=== PATIENT | female | born 1975 | race Caucasian/White ===

== ENCOUNTER → 2018-03-05 | Outpatient (CLI) | payer OTHER | END | disposition home or self-care (01) | LOC: MAMMO 10:57 | DX: Z12.31 Encounter for screening mammogram for malignant neoplasm of breast (principal) ==

== ENCOUNTER 2019-04-03 19:24 | Emergency (ER) | payer OTHER ==
[~2019-04-03] VITALS: Ht 167.6 cm; Wt 79.4 kg
[~2019-04-03 19:24] MED LIST: CYCLOBENZAPRINE10 MG PO; NAPROSYN500 MG PO; PREDNISONE20 M1 PO
[2019-04-03 19:26] VITALS: BP 131/86
[2019-04-03 20:26] LABS: BASO # 0.1 10*3/uL (0.0-0.1); BASO % 0.6 % (0.0-1.0); BILIRUBIN 1+ (NEGATIVE); BLOOD 3+ (NEGATIVE); CLARITY SL CLOUDY (CLEAR); COLOR YELLOW (YELLOW); EOS # 0.3 10*3/uL (0.0-0.4); EOS % 2.5 % (1.0-4.0); GLUCOSE NEGATIVE (NEGATIVE); HEMOGLOBIN 15.5 g/dl (12.0-16.0); KETONE NEGATIVE (NEGATIVE); LEUKO ESTERASE NEGATIVE (NEGATIVE); LYMPH # 2.4 10*3/uL (1.3-4.4); LYMPH % 20.6 % (27.0-41.0); MEAN CELL VOLUME 93.3 fl (81.0-99.0); MEAN CORPUSCULAR HGB 31.4 pg (27.0-31.0); MEAN CORPUSCULAR HGB CONC 33.7 g/dl (33.0-37.0); MEAN PLATELET VOLUME 9.5 fl (9.6-12.3); MONO # 0.9 10*3/uL (0.1-1.0); MONO % 7.6 % (3.0-9.0); NEUT # 8.1 10*3/uL (2.3-7.9); NEUT % 68.4 % (47.0-73.0); NITRITE NEGATIVE (NEGATIVE); PH 5.5 (5.0-9.0); PLATELET COUNT AUTOMATED 377 10*3/uL (130-400); RED BLOOD COUNT 4.93 10*6/uL (4.10-5.10); RED CELL DISTRI WIDTH 12.9 % (0-14.5); SPECIFIC GRAVITY >= 1.030 (1.005-1.030); UROBILINOGEN 0.2 E.U./dl (0.2-1.0); WHITE BLOOD COUNT 11.8 10*3/uL (4.8-10.8)
[2019-04-03 20:38] LABS: BACTERIA 1+
[2019-04-03 20:47] LABS: ALBUMIN 4.2 gm/dl (3.1-4.5); ALKALINE PHOSPHATASE 52 U/L (45-117); BUN 12 mg/dl (7-24); CHLORIDE 108 mmol/L (98-107); CREATININE 0.77 mg/dL (0.55-1.02); LIPASE 79 U/L (73-393); POTASSIUM 3.2 mmol/L (3.5-5.1); SGOT/AST 24 IU/L (3-35); SGPT/ALT 32 U/L (12-78); SODIUM 139 mmol/L (136-145); TOTAL PROTEIN 7.7 gm/dL (6.4-8.2)
[2019-04-03] MEDS ORDERED: ANTI-DIARRHEAL2 MG PO (21:10)
== END 2019-04-03 21:20 | disposition home or self-care (01) ==
LOC: ED 19:24
PROVIDERS: Nurse Practitioner Family
DX: R19.7 Diarrhea, unspecified (principal); R10.13 Epigastric pain; F17.200 Nicotine dependence, unspecified, uncomplicated; Z88.1 Allergy status to other antibiotic agents; Z79.899 Other long term (current) drug therapy

== ENCOUNTER → 2019-05-20 | Day surgery (SDC) | payer OTHER ==
[~2019-05-20] VITALS: Ht 167.6 cm; Wt 81.6 kg
[~2019-05-20] MED LIST changes: +ANTI-DIARRHEAL2 MG PO; +LEVOTHYROXINE50 MCG PO; +ZOLOFT50 MG PO
[2019-05-20 07:24] VITALS: BP 125/68
[2019-05-20 08:32] VITALS: BP 118/51
[2019-05-20 08:43] VITALS: BP 111/58
[2019-05-20 08:58] VITALS: BP 123/62
== END | disposition home or self-care (01) ==
LOC: SDC 05-16 08:45
DX: R19.4 Change in bowel habit (principal); K57.30 Diverticulosis of large intestine without perforation or abscess without bleeding; F32.9 Major depressive disorder, single episode, unspecified; Z87.891 Personal history of nicotine dependence; Z83.3 Family history of diabetes mellitus; Z82.49 Family history of ischemic heart disease and other diseases of the circulatory system; Z82.5 Family history of asthma and other chronic lower respiratory diseases

== ENCOUNTER → 2020-03-08 | Emergency (ER) | payer OTHER | LOC: ED 19:22 | DX: M54.5 Low back pain (principal); Z53.21 Procedure and treatment not carried out due to patient leaving prior to being seen by health care provider ==

== ENCOUNTER 2020-03-09 12:45 | Emergency (ER) | payer OTHER ==
[~2020-03-09] VITALS: Ht 167.6 cm; Wt 113.4 kg
[2020-03-09 12:49] VITALS: BP 131/75
[2020-03-09] MEDS ORDERED: PREDNISONE20 M1 PO (14:38)
[2020-03-09] MEDS ORDERED: METHOCARBAMOL500 M1 PO (14:38)
== END 2020-03-09 15:01 | disposition home or self-care (01) ==
LOC: ED 12:45
DX: M54.5 Low back pain (principal); M62.838 Other muscle spasm; Z88.8 Allergy status to other drugs, medicaments and biological substances; Z79.899 Other long term (current) drug therapy

== ENCOUNTER → 2020-06-22 | Outpatient (CLI) | payer OTHER ==
[~2020-06-22] MED LIST changes: +METHOCARBAMOL500 M1 PO
[2020-06-22 09:58] LABS: BASO % 0.5 % (0.0-1.0); EOS # 0.1 10*3/uL (0.0-0.4); EOS % 1.3 % (1.0-4.0); HEMATOCRIT 41.7 % (37.0-47.0); LYMPH # 2.9 10*3/uL (1.3-4.4); LYMPH % 36.7 % (27.0-41.0); MEAN CELL VOLUME 90.8 fl (81.0-99.0); MEAN CORPUSCULAR HGB 30.1 pg (27.0-31.0); MEAN CORPUSCULAR HGB CONC 33.1 g/dl (33.0-37.0); MEAN PLATELET VOLUME 9.7 fl (9.6-12.3); MONO # 0.6 10*3/uL (0.1-1.0); MONO % 7.7 % (3.0-9.0); NEUT # 4.3 10*3/uL (2.3-7.9); NEUT % 53.5 % (47.0-73.0); PLATELET COUNT AUTOMATED 313 10*3/uL (130-400); RED BLOOD COUNT 4.59 10*6/uL (4.10-5.10); RED CELL DISTRI WIDTH 12.6 % (0-14.5); WHITE BLOOD COUNT 7.9 10*3/uL (4.8-10.8)
[2020-06-22 09:58] LABS: BILIRUBIN Negative (Negative); BLOOD 3+ (Negative); CLARITY Clear (Clear); COLOR Yellow (Yellow); GLUCOSE Negative (Negative); KETONE Trace (Negative); LEUKO ESTERASE Trace (Negative); NITRITE Negative (Negative); SPECIFIC GRAVITY >= 1.030 (1.001-1.030); UROBILINOGEN 0.2 E.U./dl (0.0-1.0)
[2020-06-22 10:20] LABS: BACTERIA 1+; WBC 0-2 wbc/hpf (0-5)
[2020-06-22 10:35] LABS: ALBUMIN 3.9 gm/dl (3.1-4.5); ALKALINE PHOSPHATASE 78 U/L (45-117); BUN 21 mg/dl (7-24); CHLORIDE 109 mmol/L (98-107); CHOLESTEROL 212 mg/dL (<200); CREATININE 0.76 mg/dL (0.55-1.02); FREE T4 1.13 ng/dl (0.76-1.46); HDL CHOLESTEROL 62 mg/dl (40-60); LDL CHOLESTEROL 134 mg/dL (9-159); POTASSIUM 4.5 mmol/L (3.5-5.1); SGOT/AST 11 IU/L (3-35); SGPT/ALT 24 U/L (12-78); SODIUM 139 mmol/L (136-145); TOTAL PROTEIN 7.5 gm/dL (6.4-8.2); TRIGLYCERIDES 80 mg/dl (<150); VLDL CHOLESTEROL 16 mg/dL (6-40)
== END | disposition home or self-care (01) ==
LOC: LAB 08:45
PROVIDERS: ATTEND Family Medicine
DX: I10 Essential (primary) hypertension (principal); E03.9 Hypothyroidism, unspecified; E78.2 Mixed hyperlipidemia

== ENCOUNTER → 2020-06-25 | Outpatient (CLI) | payer OTHER | END | disposition home or self-care (01) | LOC: MAMMO 10:00 → MRI 11:00 | PROVIDERS: ATTEND Family Medicine | DX: Z12.31 Encounter for screening mammogram for malignant neoplasm of breast (principal); M51.36 Other intervertebral disc degeneration, lumbar region ==

== ENCOUNTER → 2020-11-30 | Outpatient (CLI) | payer OTHER ==
[2020-11-30 10:23] LABS: THYROXINE (T4) TOTAL 9.8 ug/dl (4.8-13.9)
[2020-11-30 10:29] LABS: THYROID STIM HORMONE (HS) 2.44 uIU/ml (0.358-4.75)
== END | disposition home or self-care (01) ==
LOC: LAB 01:38
PROVIDERS: ATTEND Family Medicine
DX: E03.9 Hypothyroidism, unspecified (principal)

== ENCOUNTER → 2022-02-24 | Outpatient (CLI) | payer OTHER | END | disposition home or self-care (01) | LOC: MAMMO 14:00 | PROVIDERS: ATTEND Family Medicine | DX: Z12.31 Encounter for screening mammogram for malignant neoplasm of breast (principal); N63.11 Unspecified lump in the right breast, upper outer quadrant ==

== ENCOUNTER → 2022-03-14 | Outpatient (CLI) | payer OTHER ==
[2022-03-14 12:22] LABS: BASO # 0.1 10*3/uL (0.0-0.1); BASO % 0.9 % (0.0-1.0); EOS # 0.1 10*3/uL (0.0-0.4); HEMATOCRIT 39.8 % (37.0-47.0); LYMPH # 2.9 10*3/uL (1.3-4.4); MEAN CELL VOLUME 91.9 fl (81.0-99.0); MEAN CORPUSCULAR HGB 30.3 pg (27.0-31.0); MEAN CORPUSCULAR HGB CONC 32.9 g/dl (33.0-37.0); MONO # 0.5 10*3/uL (0.1-1.0); MONO % 6.8 % (3.0-9.0); NEUT # 3.5 10*3/uL (2.3-7.9); NEUT % 49.2 % (47.0-73.0); PLATELET COUNT AUTOMATED 312 10*3/uL (130-400); RED BLOOD COUNT 4.33 10*6/uL (4.10-5.10); RED CELL DISTRI WIDTH 13.2 % (0-14.5)
[2022-03-14 12:45] LABS: BUN 15 mg/dl (7-24); CHLORIDE 109 mmol/L (98-107); CREATININE 0.64 mg/dL (0.55-1.02); SGOT/AST 13 IU/L (3-35); SGPT/ALT 23 U/L (12-78); SODIUM 139 mmol/L (136-145)
[2022-03-14 12:50] LABS: ALKALINE PHOSPHATASE 72 U/L (45-117); CHOLESTEROL 174 mg/dL (<200); FREE T4 1.15 ng/dl (0.76-1.46); LDL CHOLESTEROL 111 mg/dL (9-159); T3 UPTAKE 32 % (31-39); THYROXINE (T4) TOTAL 8.9 ug/dl (4.8-13.9); TOTAL PROTEIN 7.1 gm/dL (6.4-8.2); TRIGLYCERIDES 59 mg/dl (<150)
== END | disposition home or self-care (01) ==
LOC: LAB 11:34
PROVIDERS: ATTEND Family Medicine
DX: E78.2 Mixed hyperlipidemia (principal); E03.9 Hypothyroidism, unspecified

== ENCOUNTER → 2022-03-20 | Outpatient (CLI) | payer OTHER | END | disposition home or self-care (01) | LOC: US 01:01 | PROVIDERS: ATTEND Family Medicine | DX: D48.61 Neoplasm of uncertain behavior of right breast (principal); N60.01 Solitary cyst of right breast ==

== ENCOUNTER → 2022-07-30 | Outpatient (CLI) | payer OTHER ==
[2022-07-30 10:37] LABS: FREE T4 1.03 ng/dl (0.89-1.76); THYROID STIM HORMONE (HS) 4.715 uIU/ml (0.550-4.780)
== END | disposition home or self-care (01) ==
LOC: LAB 01:37
PROVIDERS: ATTEND Internal Medicine Endocrinology, Diabetes & Metabolism
DX: R94.6 Abnormal results of thyroid function studies (principal)

== ENCOUNTER → 2025-01-19 | Outpatient (CLI) | payer OTHER ==
[2025-01-19 07:47] LABS: BASO # 0.1 10*3/uL (0.0-0.1); BASO % 0.7 % (0.0-1.0); EOS # 0.2 10*3/uL (0.0-0.4); EOS % 3.1 % (1.0-4.0); MEAN CELL VOLUME 91.2 fl (81.0-99.0); MEAN CORPUSCULAR HGB 29.6 pg (27.0-31.0); MEAN PLATELET VOLUME 9.7 fl (9.6-12.3); MONO # 0.6 10*3/uL (0.1-1.0); MONO % 8.5 % (3.0-9.0); NEUT # 3.6 10*3/uL (2.3-7.9); NEUT % 51.1 % (47.0-73.0); NUCLEATED RED BLOOD CELL 0.0 % (0.0-0.0); NUCLEATED RED BLOOD CELL 0.0 10*3/uL (0.0-0.0); PLATELET COUNT AUTOMATED 308 10*3/uL (130-400); RED CELL DISTRI WIDTH 13.5 % (0-14.5)
[2025-01-19 08:27] LABS: BUN 15 mg/dl (9-23); FREE T4 1.01 ng/dl (0.89-1.76); LDL CHOLESTEROL 129 mg/dL (9-159); SGPT/ALT 28 U/L (5-49)
[2025-01-19 09:47] LABS: VITAMIN D, 25-HYDROXY 41.3 ng/mL (30-100)
== END | disposition home or self-care (01) ==
LOC: LAB 01:01
PROVIDERS: ATTEND Nurse Practitioner Family
DX: R14.3 Flatulence (principal); R14.0 Abdominal distension (gaseous)

== ENCOUNTER → 2025-01-26 | Outpatient (CLI) | payer OTHER | LOC: MAMMO 00:40 | PROVIDERS: ATTEND Nurse Practitioner Family | DX: Z12.31 Encounter for screening mammogram for malignant neoplasm of breast (principal); R92.343 Mammographic extreme density, bilateral breasts ==

== ENCOUNTER → 2025-02-02 | Outpatient (CLI) | payer OTHER | END | disposition home or self-care (01) | LOC: US 03:04 | PROVIDERS: ATTEND Nurse Practitioner Family | DX: E04.1 Nontoxic single thyroid nodule (principal) ==